=== PATIENT | female | born 1995 | race Caucasian/White ===

== ENCOUNTER 2022-10-15 11:00 | Emergency (ER) | payer OTHER ==
[2022-10-15 11:09] VITALS: PULSE 72; RESP 17; TEMP 97.3; BMI 24.2
[2022-10-15] MEDS ORDERED: ACETAMINOPHEN 1000 MG/100 ML BAG IVPB ONE (12:08)
[2022-10-15] MEDS ORDERED: METOCLOPRAMIDE HCL INJECTION 10 MG/2 ML VIAL IVPUSH ONE (12:08)
[2022-10-15] MEDS ORDERED: LACTATED RINGERS SOLUTION 1000 ML INFUS.BAG IV ONE (12:08)
[2022-10-15] MEDS ORDERED: METOCLOPRAMIDE HCL INJECTION 10 MG/2 ML VIAL ONE (12:21)
[2022-10-15] MEDS ORDERED: ACETAMINOPHEN INJECTION 100 ML IVPB ONE (12:21)
[2022-10-15 13:18] VITALS: BP 111/52
== END 2022-10-15 13:18 | disposition home or self-care (01) ==
LOC: JERFT 11:00
PROC: 3E033NZ Introduction of Analgesics, Hypnotics, Sedatives into Peripheral Vein, Percutaneous Approach (ICD-10-PCS; principal; 2022-10-15)
PROC: 3E033GC Introduction of Other Therapeutic Substance into Peripheral Vein, Percutaneous Approach (ICD-10-PCS; 2022-10-15)
DX: R51.9 Headache, unspecified (principal)
CPT/HCPCS: 36415; 84703; 99283-25